=== PATIENT | female | born 1990 | race Caucasian/White ===

== ENCOUNTER 2018-09-15 14:57 | Emergency (ER) | payer BC, OTHER ==
--- NOTE | 2018-09-15 15:33 | UC ---
Headache HPI - HPI Summary HPI Summary: 28 yo female with the onset of a severe Right hemicanial NUÑEZ this AM photophobia n/v x 3 right eye visual changes Had a migraine as a teen - History Of Current Complaint Chief Complaint: UCHeadache Stated Complaint: VOMITING, AND HEADACHE Time Seen by Provider: 09/15/18 15:20 Hx Obtained From: Patient Hx Last Menstrual Period: IUD Onset/Duration: Gradual Onset, Lasting Hours Onset Of Symptoms: Gradual Initially Headache Was: Severe Currently Pain Is: Severe Pain Intensity: 8 Pain Scale Used: 0-10 Numeric Timing: Constant - but waxes and wanes Character: Throbbing, Pressure Location of Headache: Other: - left frontal to left occipital Aggravating Factor(s): Nothing Allevating Factor(s): Nothing Associated Signs And Symptoms: Positive: Nausea, Vomiting. Negative: Dizziness , Seizure, Sinus Pressure, Fever, Neck Pain, Neck Stiffness, Decreased LOC, Visual Changes, Other (Noted In Comments) - Allergies/Home Medications Allergies/Adverse Reactions: Allergies Allergy/AdvReac Type Severity Reaction Status Date / Time No Known Allergies Allergy Verified 07/10/16 13:19 PMH/Surg Hx/FS Hx/Imm Hx Previously Healthy: Yes - Surgical History Surgical History: Yes Surgery Procedure, Year, and Place: wisdom teeth removed - Family History Known Family History: Positive: Hypertension Family History: NON CONTRIBUTORY - Social History Alcohol Use: Weekly Alcohol Amount: one glass Substance Use Type: None Smoking Status (MU): Never Smoked Tobacco Have You Smoked in the Last Year: No Review of Systems All Other Systems Reviewed And Are Negative: Yes Constitutional: Positive: Negative Skin: Positive: Negative Eyes: Positive: Photophobia ENT: Positive: Negative Respiratory: Positive: Negative Cardiovascular: Positive: Negative Gastrointestinal: Positive: Vomiting, Nausea Genitourinary: Positive: Negative Motor: Positive: Negative Neurovascular: Positive: Negative Musculoskeletal: Positive: Negative Neurological: Positive: Headache Psychological: Positive: Negative Physical Exam Triage Information Reviewed: Yes Appearance: Well-Appearing, No Pain Distress, Well-Nourished Vital Signs: Initial Vital Signs Temp 98.5 F 09/15/18 15:02 Pulse 80 09/15/18 15:02 Resp 16 09/15/18 15:02 BP 124/90 09/15/18 15:02 Pulse Ox 100 09/15/18 15:02 Vital Signs Reviewed: Yes Eyes: Positive: Conjunctiva Clear, Other: - perrl/eomi ENT: Positive: Hearing grossly normal. Negative: Nasal congestion, Nasal drainage, Trismus, Muffled voice, Dental tenderness, Sinus tenderness, Uvula midline Dental Exam: Normal Neck: Positive: Supple, Nontender, No Lymphadenopathy Respiratory: Positive: Lungs clear, Normal breath sounds, No respiratory distress, No accessory muscle use Cardiovascular: Positive: RRR, No Murmur Musculoskeletal: Positive: ROM Intact, No Edema Neurological: Positive: Alert, Muscle Tone Normal, Other: - cn2-12 intact, strenght 5/5, sensory intact, dtrs symmetrical, normal gait, GCS 15/15 Psychological Exam: Normal Skin Exam: Normal Diagnostics - Radiology No standard instances Radiology Interpretation Completed By: Radiologist Summary of Radiographic Findings: normal CT brain Re-Evaluation - Re-Evaluation First Eval Re-Evaluation Time: 16:51 Change: Improved - NUÑEZ /...want to go home Headache Course/Dx - Differential Dx/Diagnosis Provider Diagnosis: Migraine Discharge - Sign-Out/Discharge Documenting (check all that apply): Patient Departure All imaging exams completed and their final reports reviewed: Yes - Discharge Plan Condition: Stable Disposition: HOME Patient Education Materials: Migraine Headache (ED) Forms: *School Release Referrals: Melvin Valdez DO [Primary Care Provider] - 1 Week Additional Instructions: aleve 1-2 pills twice daily with food if needed - Billing Disposition and Condition Condition: STABLE Disposition: Home
[2018-09-15] MEDS ORDERED: NS 0.9% 1000 ML** 1,000 ML BOLUS ONE (15:52)
[2018-09-15] MEDS ORDERED: Ketorolac INJ* 30 MG/ML 1 ML VIAL IV ONE (15:52)
[2018-09-15] MEDS ORDERED: Ondansetron INJ* 2 MG/ML VIAL IV ONE (15:53)
[2018-09-15 17:17] VITALS: BP 128/70
== END 2018-09-15 17:00 | disposition home or self-care (01) ==
LOC: UCEAST 14:57
DX: G43.909 Migraine, unspecified, not intractable, without status migrainosus (principal); R11.2 Nausea with vomiting, unspecified
CPT/HCPCS: 70450; 96360; 96374; 99211; G0463; J1885; J2405